=== PATIENT | male | born 1940 | race Caucasian/White ===

== ENCOUNTER 2016-09-19 11:10 | Emergency (ER) | payer MEDICARE, BC ==
--- NOTE | 2016-09-19 12:43 | UC ---
Skin Complaint HPI - HPI Summary HPI Summary: Woke up with raised itchy bumps on inner thighs, back, abd. Had hives once before as a reaction to sawing wood, thinks this feels like hives. No allergies to foods or medicines. Rash seems to be getting better. - History of Current Complaint Chief Complaint: UCSkin Time Seen by Provider: 09/19/16 12:07 Stated Complaint: RASH Hx Obtained From: Patient Onset/Duration: Sudden Onset Timing: Constant Onset Severity: Mild Current Severity: Mild Location: Diffuse Character: Pruritus, Hives Aggravating: Clothing, Touch Alleviating: Nothing Associated Signs & Symptoms: Positive: Rash - Allergy/Home Medications Allergies/Adverse Reactions: Allergies Allergy/AdvReac Type Severity Reaction Status Date / Time Bee Venom Allergy Rash And Verified 11/12/15 00:53 Itching Review of Systems Constitutional: Negative Skin: Rash Eyes: Negative ENT: Negative Respiratory: Negative Cardiovascular: Negative Gastrointestinal: Negative Genitourinary: Negative Motor: Negative Neurovascular: Negative Musculoskeletal: Negative Neurological: Negative Psychological: Negative All Other Systems Reviewed And Are Negative: Yes PMH/Surg Hx/FS Hx/Imm Hx Endocrine History: Diabetes Cardiovascular History: Cardiac Disease, Hypertension Respiratory History: COPD, Asthma - Surgical History Surgical History: Yes Surgery Procedure, Year, and Place: Cardiac Surgery September 2011 - Family History Known Family History: Positive: None Negative: Cardiac Disease, Diabetes - Social History Alcohol Use: Rare Substance Use Type: None Smoking Status (MU): Former Smoker Type: Cigarettes Amount Used/How Often: quit back in the 80's Physical Exam Triage Information Reviewed: Yes Appearance: No Pain Distress, Obese Vital Signs: Initial Vital Signs Temp 98 F 09/19/16 11:14 Pulse 99 09/19/16 11:14 Resp 20 09/19/16 11:14 Pulse Ox 100 09/19/16 11:14 Vital Signs Reviewed: Yes Eye Exam: Normal Eyes: Positive: Conjunctiva Clear ENT Exam: Normal ENT: Positive: Normal ENT inspection, Hearing grossly normal, Pharynx normal, TMs normal Dental Exam: Normal Neck exam: Normal Neck: Positive: Supple, Nontender, No Lymphadenopathy Respiratory Exam: Normal Respiratory: Positive: Chest non-tender, Lungs clear, Normal breath sounds, No respiratory distress, No accessory muscle use Cardiovascular Exam: Normal Cardiovascular: Positive: RRR, No Murmur Musculoskeletal Exam: Normal Neurological Exam: Normal Neurological: Positive: Alert Psychological Exam: Normal Skin Exam: Other - few raised irreg wheals on L flank, upper thighs Course/Dx - Diagnoses Provider Diagnoses: urticaria Discharge - Discharge Plan Condition: Stable Disposition: HOME Prescriptions: hydrOXYzine HCL TAB* [Atarax 25 MG TAB*] 25 mg PO QID PRN #20 tab PRN Reason: Itching Patient Education Materials: Urticaria (ED) Referrals: Fernando Parks MD [Primary Care Provider] - Additional Instructions: See your primary care provider if symptoms do not resolve within 48 hours. Otherwise, take the antihistamine for 3-5 days.
== END 2016-09-19 12:40 | disposition home or self-care (01) ==
LOC: UCEAST 11:10
DX: L50.9 Urticaria, unspecified (principal); E11.9 Type 2 diabetes mellitus without complications; I10 Essential (primary) hypertension; Z87.891 Personal history of nicotine dependence
CPT/HCPCS: 99202; G0463

== ENCOUNTER 2018-06-27 11:54 | Emergency (ER) | payer MEDICARE, OTHER ==
[2018-06-27 12:19] VITALS: BP 153/96
--- NOTE | 2018-06-27 13:38 | UC ---
Respiratory Complaint HPI - HPI Summary HPI Summary: 77 yo male presents s/p fall. He tells me that 4 days ago he slipped on the wet pavement and landed on his left elbow and left side. Did not hit his head. Since that time has been having pain in his left ribs that is more painful with coughing and deep breaths. He is concerned he may have broken a rib. No SOB or chest pain. - History of Current Complaint Chief Complaint: UCTrauma Stated Complaint: RIB PAIN Time Seen by Provider: 06/27/18 12:31 Onset/Duration: Sudden Onset Severity Initially: Moderate Severity Currently: Moderate Pain Intensity: 8 Pain Scale Used: 0-10 Numeric - Allergies/Home Medications Allergies/Adverse Reactions: Allergies Allergy/AdvReac Type Severity Reaction Status Date / Time bee venom protein (honey bee) Allergy Intermediate rash Verified 06/27/18 12:19 itching Home Medications: Home Medications Cholecalciferol TAB* [Vitamin D TAB*] 1,000 unit PO DAILY 06/27/18 [History Confirmed 06/27/18] Metformin HCl 500 mg PO DAILY WITH MEAL 06/27/18 [History Confirmed 06/27/18] PMH/Surg Hx/FS Hx/Imm Hx Endocrine History: Diabetes Cardiovascular History: Cardiac Disease, Hypertension, Congestive Heart Failure Respiratory History: Asthma - Surgical History Surgical History: Yes Surgery Procedure, Year, and Place: Cardiac Surgery September 2011 - Family History Known Family History: Positive: None Negative: Cardiac Disease, Diabetes - Social History Alcohol Use: Weekly Substance Use Type: None Smoking Status (MU): Former Smoker Type: Cigarettes Amount Used/How Often: quit back in the 80's Review of Systems All Other Systems Reviewed And Are Negative: Yes Constitutional: Positive: Negative Skin: Positive: Negative Respiratory: Positive: Negative Cardiovascular: Positive: Negative Gastrointestinal: Positive: Negative Musculoskeletal: Positive: Other: - Left rib pain Neurological: Positive: Negative Psychological: Positive: Negative Physical Exam - Summary Physical Exam Summary: GENERAL: NAD. WDWN. No pain distress. SKIN: No rashes, sores, lesions, or open wounds. CHEST: CTAB. No r/r/w. No accessory muscle use. Breathing comfortably and in no distress. CV: Pulses intact. Cap refill <2seconds Abdomen: Soft and nontender. No ecchymosis MSK: Left ribs: ~8th-9th rib TTP at aterolateral aspect. No ecchymosis or step off deformity. NEURO: Alert. PSYCH: Age appropriate behavior. Triage Information Reviewed: Yes Vital Signs: Initial Vital Signs Temp 98.2 F 06/27/18 12:14 Pulse 74 06/27/18 12:14 Resp 20 06/27/18 12:14 BP 153/96 06/27/18 12:14 Pulse Ox 95 06/27/18 12:14 Vital Signs Reviewed: Yes Respiratory Course/Dx - Course Course Of Treatment: Rib and CXR: IMPRESSION: SMALL LEFT PLEURAL EFFUSION. NO DISPLACED RIB FRACTURE OR PNEUMOTHORAX. Suspect pleural effusion from his CHF and not related to his recent fall. He is breathing well and in no distress. Dx with rib contusion and strongly encouraged to f/u with his PCP for CXR findings. - Differential Dx/Diagnosis Provider Diagnosis: Rib contusion Discharge - Sign-Out/Discharge Documenting (check all that apply): Patient Departure All imaging exams completed and their final reports reviewed: Yes - Discharge Plan Condition: Stable Disposition: HOME Prescriptions: Lidocaine PATCH 5%* [Lidoderm 5% Patch*] 1 patch TRANSDERM DAILY PRN #14 patch PRN Reason: Pain Patient Education Materials: Pleural Effusion (ED) Referrals: Fernando Parks MD [Primary Care Provider] - 2 Days Additional Instructions: If you develop a fever, shortness of breath, chest pain, new or worsening symptoms - please call your PCP or go to the ED. Your blood pressure was high at todays visit. Please see your primary provider within 4 weeks for recheck and re-evaluation. Please follow up with your primary doctor as soon as possible for your rib pain - Billing Disposition and Condition Condition: STABLE Disposition: Home
== END 2018-06-27 13:56 | disposition home or self-care (01) ==
LOC: UCEAST 11:54
DX: S20.20XA Contusion of thorax, unspecified, initial encounter (principal); W01.0XXA Fall on same level from slipping, tripping and stumbling without subsequent striking against object, initial encounter; Y92.9 Unspecified place or not applicable; J90 Pleural effusion, not elsewhere classified; E11.9 Type 2 diabetes mellitus without complications; Z79.84 Long term (current) use of oral hypoglycemic drugs; I11.0 Hypertensive heart disease with heart failure; I50.9 Heart failure, unspecified; J45.909 Unspecified asthma, uncomplicated; Z91.030 Bee allergy status; Z87.891 Personal history of nicotine dependence
CPT/HCPCS: 99212; G0463

== ENCOUNTER 2019-01-23 17:28 | Inpatient (IN) | payer MEDICARE, OTHER ==
--- NOTE | 2019-01-23 19:25 | ED ---
Shortness of Breath - HPI Summary HPI Summary: Patient is a 78 y/o M presenting to the ED for a chief complaint of shortness of breath that began on 01/22/19. On arrival, patient's pulse ox was 83%. Patient also admits nonproductive cough, nasal discharge, and chest discomfort and tightness. The chest discomfort and shortness of breath worsens with exertion and walking. Patient denies fever, bilateral LE edema, or recent illness. Patient uses 2L of oxygen and a CPAP machine at night. Patient sees Dr. Parks. Patient denies a PMHx of [place]. Allergies noted Medications reviewed. - History of Current Complaint Chief Complaint: EDShortnessOfBreath Time Seen by Provider: 01/23/19 19:22 Hx Obtained From: Patient Onset/Duration: Sudden Onset, Still Present Current Severity: Moderate Aggravating Factors: Movement - Walking Alleviating Factors: Nothing Associated Signs & Symptoms: Cough (Nonproductive), Nasal Congestion - Allergy/Home Medications Allergies/Adverse Reactions: Allergies Allergy/AdvReac Type Severity Reaction Status Date / Time bee venom protein (honey bee) Allergy Intermediate rash Verified 01/23/19 17:38 itching Home Medications: Home Medications Acetaminophen [Acetaminophen Extra Strength] 1,000 mg PO Q6HR PRN 01/23/19 [ History Confirmed 01/23/19] Aspirin EC TAB* [Ecotrin EC Low Dose 81 MG*] 81 mg PO DAILY 01/23/19 [History Confirmed 01/23/19] Atorvastatin* [Lipitor*] 20 mg PO DAILY 01/23/19 [History Confirmed 01/23/19] Budesonide Flexhaler 180 (NF) [Pulmicort Flexhaler 180 mcg/act (NF)] 1 puff IN BID 01/23/19 [History Confirmed 01/23/19] Carvedilol TAB* [Coreg TAB*] 25 mg PO BID 01/23/19 [History Confirmed 01/23/19] Cbd Oil 1 drop PO BID 01/23/19 [History Confirmed 01/23/19] Digoxin TAB* [Lanoxin TAB*] 0.125 mg PO EVERY OTHER DAY 01/23/19 [History Confirmed 01/23/19] Lisinopril TAB* [Prinivil TAB*] 10 mg PO DAILY 01/23/19 [History Confirmed 01/23] Sildenafil (NF) [Viagra (NF)] 50 - 100 mg PO DAILY PRN 01/23/19 [History Confirmed 01/23/19] Torsemide TAB* [Demadex*] 10 mg PO EVERY OTHER DAY 01/23/19 [History Confirmed 01/23/19] Warfarin TAB(*) [Coumadin TAB(*)] 2.5 mg PO SA 01/23/19 [History Confirmed 01/23] Warfarin TAB(*) [Coumadin TAB(*)] 5 mg PO SUMOTUWETHFR 01/23/19 [History Confirmed 01/23/19] metFORMIN* [Glucophage 500 MG TAB *] 500 mg PO BID 01/23/19 [History Confirmed 01/23/19] PMH/Surg Hx/FS Hx/Imm Hx Previously Healthy: Yes Endocrine/Hematology History: Reports: Hx Diabetes - borderline Denies: Hx Thyroid Disease Cardiovascular History: Reports: Hx Hypertension, 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 Denies: Hx Congestive Heart Failure, Hx Hypercholesterolemia, Hx Myocardial Infarction, Hx Pacemaker/ICD Respiratory History: Reports: Hx Asthma, Hx Chronic Obstructive Pulmonary Disease (COPD), Hx Sleep Apnea, Other Respiratory Problems/Disorders - Cor Pulmonale, severe JANETT, current BiPAP user GI History: Denies: Hx Ulcer Sensory History: Denies: Hx Legally Blind, Hx Deafness Opthamlomology History: Denies: Hx Legally Blind EENT History: Denies: Hx Deafness - Surgical History Surgical History: Yes Surgery Procedure, Year, and Place: Cardiac Surgery September 2011 - Immunization History Date of Tetanus Vaccine: UTD Date of Influenza Vaccine: 12/13/15 Infectious Disease History: No Infectious Disease History: Denies: Hx Clostridium Difficile, Hx Hepatitis, Hx Human Immunodeficiency Virus (HIV), Hx of Known/Suspected MRSA, Hx Shingles, Hx Tuberculosis, Hx Known/ Suspected VRE, Hx Known/Suspected VRSA, History Other Infectious Disease, Traveled Outside the [place] in Last 30 Days - Family History Known Family History: Negative: Cardiac Disease, Diabetes - Social History Occupation: Retired Lives: With Family Alcohol Use: Weekly Hx Substance Use: No Substance Use Type: Reports: None Hx Tobacco Use: Yes Smoking Status (MU): Former Smoker Type: Cigarettes Amount Used/How Often: quit back in the 80's Review of Systems - ROS Summary Review of Systems Summary: Lidocaine PATCH 5%* [Lidoderm 5% Patch*] 1 patch TRANSDERM DAILY PRN #14 patch 06/27/18 [Rx Confirmed 01/23/19] Acetaminophen [Acetaminophen Extra Strength] 1,000 mg PO Q6HR PRN 01/23/19 [ History Confirmed 01/23/19] Aspirin EC TAB* [Ecotrin EC Low Dose 81 MG*] 81 mg PO DAILY 01/23/19 [History Confirmed 01/23/19] Atorvastatin* [Lipitor*] 20 mg PO DAILY 01/23/19 [History Confirmed 01/23/19] Budesonide Flexhaler 180 (NF) [Pulmicort Flexhaler 180 mcg/act (NF)] 1 puff IN BID 01/23/19 [History Confirmed 01/23/19] Carvedilol TAB* [Coreg TAB*] 25 mg PO BID 01/23/19 [History Confirmed 01/23/19] Cbd Oil 1 drop PO BID 01/23/19 [History Confirmed 01/23/19] Digoxin TAB* [Lanoxin TAB*] 0.125 mg PO EVERY OTHER DAY 01/23/19 [History Confirmed 01/23/19] Lisinopril TAB* [Prinivil TAB*] 10 mg PO DAILY 01/23/19 [History Confirmed 01/23] Sildenafil (NF) [Viagra (NF)] 50 - 100 mg PO DAILY PRN 01/23/19 [History Confirmed 01/23/19] Torsemide TAB* [Demadex*] 10 mg PO EVERY OTHER DAY 01/23/19 [History Confirmed 01/23/19] Warfarin TAB(*) [Coumadin TAB(*)] 2.5 mg PO SA 01/23/19 [History Confirmed 01/23] Warfarin TAB(*) [Coumadin TAB(*)] 5 mg PO SUMOTUWETHFR 01/23/19 [History Confirmed 01/23/19] metFORMIN* [Glucophage 500 MG TAB *] 500 mg PO BID 01/23/19 [History Confirmed 01/23/19] Negative: Fever Positive: Nasal Discharge Positive: Other - Positive chest pressure and tightness Positive: Shortness Of Breath, Cough - Nonproductive Negative: Edema - Bilateral LE All Other Systems Reviewed And Are Negative: Yes Physical Exam - Summary Physical Exam Summary: General: Well-developed, Non-ill appearing obese MALE. No acute distress. HEENT: Normocephalic, Atraumatic. Eyes: Conjuctiva normal, PERRL. Ears: TMs within normal limits. Nares: (-) discharge, (-) erythema. Oropharynx: Clear, mucous membranes moist, (-) exudates. Neck: Soft, FROM, (-) lymphadenopathy, (-) thyromegaly, (-) JVD. Cardiovascular: Normal sinus rhythm, (-) murmur. Lungs: Clear to auscultation bilaterally (-) wheezes, (-) rales, (-) rhonchi. Abdomen: Soft, non-tender, non-distended, (-) organomegaly, normal bowel sounds. Back: (-) CVA tenderness Extremities: No edema. Skin: Warm, dry, (-) rash. Neuro: Alert and oriented x3, no focal deficits. Psychiatric: Mood normal, affect normal. Triage Information Reviewed: Yes Vital Signs On Initial Exam: Initial Vitals Temp Pulse Resp BP Pulse Ox 98.5 F 79 15 186/90 92 01/23/19 17:37 01/23/19 17:37 01/23/19 17:37 01/23/19 17:37 01/23/19 17:37 Vital Signs Reviewed: Yes Procedures - Sedation Patient Received Moderate/Deep Sedation with Procedure: No Diagnostics - Vital Signs Vital Signs Temp Pulse Resp BP Pulse Ox 01/23/19 17:37 98.5 F 79 15 186/90 92 - Laboratory Result Diagrams: 01/23/19 21:13 01/23/19 22:09 Lab Statement: Any lab studies that have been ordered have been reviewed, and results considered in the medical decision making process. - Radiology Chest X-ray Radiology Interpretation Completed By: ED Physician Summary of Radiographic Findings: Chest X-ray IMPRESSION: increased fluid, no acute pleural effusion on the right, no obvious infiltrate. Reviewed and interpreted by Dr. Herrera; pending official radiology report. - EKG 19:35 Cardiac Rate: NL - 79 BPM EKG Rhythm: Sinus Rhythm ST Segment: Normal Ectopy: None Summary of EKG Findings: EKG at 19:35 reveals normal sinus rhythm with rate of 79 BPM, no acute changes, no ischemic changes, RBBB, no STEMI. This EKG was reviewed and interpreted by Dr. Herrera. Re-Evaluation - Re-Evaluation First Re-Evaluation Time: 22:17 Change: Unchanged Comment: At 22:17, will give Lasix 80 mg IV for CHF. Course/Dx - Course Course Of Treatment: 78-year-old male presents with difficulty breathing over the last 2 days. He states any time he tries to do anything he gets short of breath. Significantly different than his usual state of health. He denies any chest pain. Patient with crackles, edema, elevated BNP. In the ED course, patient was given Lasix 80 mg IV. Good urine output. Referred to hospitalist for admission for hypoxemia and CHF. - Diagnoses Provider Diagnoses: CHF (congestive heart failure), Hypoxia - Physician Notifications Discussed Care of Patient With: Nathaly Gonzalez - At 01:30, Dr. Nathaly Gonzalez agrees to admit the [place] [facility] a diagnosis of [place]F and hypoxia. Time Discussed With Above Provider: 01:30 Instructed by Provider To: Admit As Inpatient Discharge ED - Sign-Out/Discharge Documenting (check all that apply): Patient Departure - Admit - Discharge Plan Condition: Stable Disposition: ADMITTED TO [facility] - Billing Disposition and Condition Condition: STABLE Disposition: Admitted to [facility] - Attestation Statements Document Initiated by Scribe: Yes Documenting Scribe: Filomena Chowdhury Provider For Whom Arjun is Documenting (Include Credential): Irina Herrera MD Scribe Attestation: Filomena Arrieta, scribed for Irina Herrera MD on 01/24/19 at 0618. Scribe Documentation Reviewed: Yes Provider Attestation: The documentation as recorded by the Filomena santana accurately reflects the service I personally performed and the decisions made by me, Irina Herrera MD Status of Scribe Document: Viewed
[2019-01-23 21:35] LABS: ABS Basophils 0.1 10^3/ul (0-0.2); ABS Eosinophils 0.1 10^3/ul (0-0.6); ABS Lymphocytes 1.6 10^3/ul (1.0-4.8); ABS Monocytes 0.9 10^3/ul (0-0.8); ABS Neutrophils 9.7 10^3/ul (1.5-7.7); Eosinophil % 0.9 %; Hematocrit 44 % (42-52); Hemoglobin 14.7 g/dL (14.0-18.0); Lymphocyte % 13.2 %; Mean Corpuscular HGB Conc 33 g/dL (31-36); Mean Corpuscular Hemoglobin 31 pg (27-31); Mean Corpuscular Volume 92 fL (80-94); Mean Platelet Volume 8.4 fL (7.4-10.4); Platelet Count 245 10^3/uL (150-450); Red Blood Count 4.81 10^6 /uL (4.18-5.48); Red Cell Distribution Width 14 % (10-15); White Blood Count 12.4 10^3/uL (3.5-10.8)
[2019-01-23 21:39] LABS: INR 3.71 (0.82-1.09)
[2019-01-23 21:46] LABS: ALT 17 U/L (7-52); Albumin 3.9 g/dL (3.2-5.2); Albumin/Globulin Ratio 1.2 (1-3); Alkaline Phosphatase 76 U/L (34-104); BUN/Creatinine Ratio 13.9 (8-20); Blood Urea Nitrogen 10 mg/dL (6-24); CO2 Carbon Dioxide 27 mmol/L (22-32); Calcium 8.9 mg/dL (8.6-10.3); Chloride 105 mmol/L (101-111); EGFR African American 128.4 (>60); EGFR Non-African American 106.1 (>60); Globulin 3.3 g/dL (2-4); Glucose 104 mg/dL (70-100); Sodium 139 mmol/L (135-145); Total Protein 7.2 g/dL (6.4-8.9)
[2019-01-23 21:47] LABS: Troponin I 0.03 ng/mL (<0.04)
[2019-01-23 21:48] LABS: Anion Gap 7 mmol/L (2-11)
[2019-01-23] MEDS ORDERED: Torsemide TAB* 20 MG PO ONE (21:56)
[2019-01-23] MEDS ORDERED: Lisinopril TAB* 10 MG PO ONE (21:57)
[2019-01-23] MEDS ORDERED: Furosemide IV* 10 MG/ML 10 ML VIAL (100 MG) IV ONE (22:17)
[2019-01-23 22:28] LABS: Potassium Redraw 3.8 mmol/L (3.5-5.0)
[2019-01-24] MEDS ORDERED: Carvedilol TAB* 6.25 MG PO ONE (02:01)
--- NOTE | 2019-01-24 06:47 | HP ---
History of Present Illness - History of Present Illness Reason for Visit: shortness of breath History of Present Illness: 78 year old male with pmhx of CHF, chronic hypoxemic resp failure, JANETT, DM2, Afib on warfarin, HLD who presented with 2-3 days hx of shortness of breath. He said he has never had anything like it before. He said he is being managed by his PCP for heart failure and takes his "water-pill" regularly but doesnt necessarily follow a low sodium diet or any heart healthy diet. Vitals stable. He is on 2-4L NC. He is supposed to be wearing 2L NC at baseline. He received 1 dose of lasix in the ER and felt better. - Past Medical History Cardiac: AFIB, CAD, HTN - Past Family History Family History: Hyperlipidemia, Hypertension - Past Social History Smoke: No Drugs: None Lives: Alone Review of Systems - Measurements Intake and Output: Intake and Output Last 24 Hours 01/21/19 01/22/19 01/23/19 01/24/19 06:59 06:59 06:59 06:59 Intake Total 80 Output Total 3775 Balance -3695 Weight 267 lb Intake: IV Fluids 20 Oral 60 Output: Urine 3775 - Review of Systems Dermatology: Positive: Normal HEENT: Positive: Normal Eyes: Positive: Normal Thyroid: Positive: Normal Pulmonary: Positive: Respiratory Distress, Shortness of Breath Cardiology: Positive: Normal, Swelling of Ankles Gastroenterology: Positive: Normal Endocrinology: Positive: Normal Neurology: Positive: Normal Psychiatry: Positive: Normal Objective Active Medications: Aspirin (Aspirin 81 Mg Chew Tab*) 81 mg PO DAILY [facility] Atorvastatin Calcium (Lipitor*) 20 mg PO DAILY@1700 [facility] Digoxin (Lanoxin Tab*) 0.25 mg PO 1700 [facility] Lisinopril (Prinivil Tab*) 10 mg PO DAILY [facility] Vital Signs - 8 hr 01/23/19 01/23/19 01/23/19 22:58 23:00 23:11 Temperature Pulse Rate 70 69 71 Respiratory 17 21 26 Rate Blood Pressure 185/90 187/98 (mmHg) O2 Sat by Pulse 97 97 97 Oximetry 01/23/19 01/23/19 01/23/19 23:27 23:54 23:58 Temperature Pulse Rate 83 77 78 Respiratory 23 22 23 Rate Blood Pressure 169/102 194/100 172/102 (mmHg) O2 Sat by Pulse 94 94 95 Oximetry 01/24/19 01/24/19 01/24/19 00:00 00:02 00:28 Temperature Pulse Rate 75 80 71 Respiratory 16 22 22 Rate Blood Pressure 181/95 (mmHg) O2 Sat by Pulse 97 96 95 Oximetry 01/24/19 01/24/19 01/24/19 00:29 00:58 01:00 Temperature Pulse Rate 73 72 72 Respiratory 21 18 21 Rate Blood Pressure 183/94 167/83 (mmHg) O2 Sat by Pulse 95 93 94 Oximetry 01/24/19 01/24/19 01/24/19 01:28 02:00 02:28 Temperature Pulse Rate 68 83 78 Respiratory 24 30 23 Rate Blood Pressure 171/87 163/90 (mmHg) O2 Sat by Pulse 93 93 92 Oximetry 01/24/19 01/24/19 01/24/19 02:58 03:00 03:35 Temperature 98.3 F Pulse Rate 76 80 84 Respiratory 22 25 24 Rate Blood Pressure 157/77 (mmHg) O2 Sat by Pulse 94 93 92 Oximetry 01/24/19 03:42 Temperature 97.9 F Pulse Rate 82 Respiratory 22 Rate Blood Pressure 154/81 (mmHg) O2 Sat by Pulse 94 Oximetry Oxygen Devices in Use Now: Nasal Cannula Appearance: morbidly obese. Mildly dyspneic, speaking in full sentences. Eyes: No Scleral Icterus, PERRLA Neck: NL Appearance and Movements; NL JVP Respiratory: Symmetrical Chest Expansion and Respiratory Effort Cardiovascular: NL Sounds; No Murmurs; No JVD Lymphatic: - Extremities: - - 2+ edema B/L Neurological: Alert and Oriented x 3 Result Diagrams: 01/23/19 21:13 01/23/19 22:09 Assess/Plan/Problems-Billing Assessment: - Patient Problems (1) CHF (congestive heart failure) Current Visit: Yes Status: Acute Code(s): I50.9 - HEART FAILURE, UNSPECIFIED SNOMED Code(s): 18956789 Comment: reports hx of CHF. Presenting with shortness of breath. XR looks a bit congested. Responded symptomatically to lasix in the ER. Echo cont home meds ( carvedilol, aspirin, statin, digoxin) dig level (2) Diabetes mellitus type 2 in obese Current Visit: Yes Status: Acute Code(s): E11.69 - TYPE 2 DIABETES MELLITUS WITH OTHER SPECIFIED COMPLICATION; E66.9 - OBESITY, UNSPECIFIED SNOMED Code(s) : 98394498 Comment: on metformin at home A1C FS ACHS lantus 10 nightly (3) Atrial fibrillation Current Visit: Yes Status: Acute Code(s): I48.91 - UNSPECIFIED ATRIAL FIBRILLATION SNOMED Code(s): 52437247 Comment: on Digoxin dig level pending in sinus. INR supratherapeutic, will hold warfarin (4) Hyperlipidemia Current Visit: Yes Status: Acute Code(s): E78.5 - HYPERLIPIDEMIA, UNSPECIFIED SNOMED Code(s): 38502680 Comment: statin (5) On home O2 Current Visit: Yes Status: Acute Code(s): Z99.81 - DEPENDENCE ON SUPPLEMENTAL OXYGEN SNOMED Code(s): 711179321651 Comment: Not sure why he has chronic hypoxemic respiratory failure (6) DVT prophylaxis Current Visit: Yes Status: Acute Code(s): Z29.9 - ENCOUNTER FOR PROPHYLACTIC MEASURES, UNSPECIFIED SNOMED Code(s): 675544095 Comment: warfarin INR 2-3 (7) Full code status Current Visit: Yes Status: Acute Code(s): Z78.9 - OTHER SPECIFIED HEALTH STATUS SNOMED Code(s): 958703861
[2019-01-24 06:50] LABS: ABS Basophils 0.1 10^3/ul (0-0.2); ABS Eosinophils 0.1 10^3/ul (0-0.6); ABS Lymphocytes 1.4 10^3/ul (1.0-4.8); ABS Monocytes 1.1 10^3/ul (0-0.8); ABS Neutrophils 7.9 10^3/ul (1.5-7.7); Hematocrit 45 % (42-52); Lymphocyte % 12.8 %; Mean Corpuscular HGB Conc 34 g/dL (31-36); Mean Corpuscular Hemoglobin 31 pg (27-31); Mean Corpuscular Volume 92 fL (80-94); Mean Platelet Volume 8.1 fL (7.4-10.4); Nucleated Red Blood Cells % 0.1; Platelet Count 246 10^3/uL (150-450); Red Blood Count 4.88 10^6 /uL (4.18-5.48); Red Cell Distribution Width 14 % (10-15); White Blood Count 10.6 10^3/uL (3.5-10.8)
[2019-01-24 06:57] LABS: INR 4.02 (0.82-1.09)
[2019-01-24] MEDS ORDERED: Aspirin 81 mg CHEW TAB* 81 MG TAB.CHEW PO SCH (09:00)
[2019-01-24] MEDS ORDERED: Perflutren Lipid Microsphere* 3 ML VIAL ONE (09:19)
[2019-01-24] MEDS ORDERED: Lidocaine PATCH 5%* 1 PATCH TRANSDERM PRN (09:48)
[2019-01-24] MEDS: Lisinopril TAB* 10 MG PO SCH (10:37)
--- NOTE | 2019-01-24 10:37 | ECHO ---
*[facility]* [place] [address] Fax #: [phone] Transthoracic Echocardiogram Patient: Dustin Clemons : 1940 Study Date: 01/24/2019 Age: 78 Gender: M HR: 72 bpm Height: 66 in /167.6 cm BSA: 2.26 m^2 Weight: 266.4 lb /121.1 kg BMI: 43.1 kg/m^2 *Compound Mixer: * Filomena Noel [facility] *Referring Physician: * Nathaly Gonzalez *Reading Physician: * Shu Gonzalez MD Indications: Congestive Heart Failure. History: Atrial fibrillation. Congestive heart failure. Risk factors: Diabetes mellitus. Dyslipidemia. Conclusions Summary: - Left ventricle: The cavity size is mildly dilated. Wall thickness is mildly increased. Systolic function is normal. The estimated ejection fraction is 50-55%. Doppler parameters abnormal, indicative of diastolic dysfunction. - Right ventricle: Systolic function is normal. - Left atrium: The atrium is severely dilated. - Right atrium: The atrium is mildly to moderately dilated. - Mitral valve: The Mitral valve annulus appears calcified. The leaflets are mildly thickened. There is mild to moderate regurgitation, closer to mild. - Aortic valve: The findings are consistent with mild stenosis. The mean systolic gradient is 10.0 mm Hg. The LVOT to aortic valve VTI ratio is 0.4. The valve area by the velocity-time integral method is 1.80 cm^2. - Compared with prior echocardiogram of 06/07/17, ejection fraction is stable, left ventricular hypertrophy noted on prior, stable. Prior study reports mild mitral stenosis, this is not seenon this study. Study data: Transthoracic echocardiogram. Procedure: Transthoracic echocardiography was performed. Image quality was adequate. Intravenous Definity , 3 mlswas administered. Complete 2D, spectral Doppler, and color flow Doppler. Location: Bedside. Patient status: Inpatient. Patient room number: 446 01. Rhythm: Normal sinus rhythm. Findings Left ventricle: The cavity size is mildly dilated. Wall thickness is mildly increased. Systolic function is normal. The estimated ejection fraction is 50-55%. Regional wall motion abnormalities: Possible hypokinesis of the basalinferior myocardium. Doppler parameters abnormal, indicative of diastolic dysfunction. Right ventricle: The cavity size is normal. Systolic function is normal. Left atrium: The atrium is severely dilated. Right atrium: The atrium is mildly to moderately dilated. Mitral valve: The Mitral valve annulus appears calcified. The leaflets are mildly thickened. Leaflet separation is normal. There is no evidence of stenosis. There is mild to moderate regurgitation, closer to mild. Aortic valve: The annulus is mildly calcified. The valve is trileaflet. The leaflets are mildly thickened. Cusp separation is mildly reduced. The findings are consistent with mild stenosis. There is no significant regurgitation. Tricuspid valve: The leaflets are normal thickness. There is no evidence of stenosis. There is no significant regurgitation. Pulmonic valve: The leaflets are normal thickness. There is no significant regurgitation. Aorta: The aortic root appears normal. Pericardium: There is no significant pericardial effusion. Pulmonary arteries: Not well visualized. Systolic pressure can not be accurately estimated. Systemic veins: Inferior vena cava: The vessel is normal in size. There is (>= 50%) respiratory change in the IVC dimension. Measurements Left ventricle Value Ref Aortic valve Value Ref CHRISTINE, LAX (H) 6.1 cm 4.2 - 5.8 Mindy diam, ED 2.5 cm ---- ESD, LAX 3.9 cm 2.5 - 4.0 Peak v, S 2.1 m/sec ---- FS, LAX 36 % 25 - 43 VTI, S 43.0 cm ---- PW, ED, LAX (H) 1.3 cm 0.6 - 1.0 Accel time 75 ms ---- EF 65 % 52 - 72 Mean grad, S 10.0 mm Hg ---- E', lat mindy, TDI (L) 7.8 cm/sec >=10.0 Peak grad, S 18.0 mm Hg -- -- E/e', lat mindy, 14 LVOT/AV, VTI ratio 0.4 ---- TDI MICHOACANO, VTI 1.80 cm^2 ---- E', med mindy, TDI (L) 4.6 cm/sec >=7.0 MICHOACANO, Vmax 1.70 cm^2 -- -- E/e', med mindy, 23 TDI Mitral valve Value Ref E', avg, TDI 6.2 cm/sec Peak E 1.08 m/sec ---- E/e', avg, TDI (H) 17 <=14 Peak A 0.65 m/sec -- -- Decel time 185 ms ---- LVOT Value Ref PHT 96 ms ---- Diam, S 2.40 cm Mean grad, D 2.0 mm Hg ---- Peak patricia, S 0.8 m/sec Peak grad, D 5.0 mm Hg ---- VTI, S 17.0 cm Peak E/A ratio 1.7 ---- Peak grad, S 2 mm Hg MVA, PHT 2.3 cm^2 ---- Mean grad, S 1 mm Hg ERO, PISA 0.06 cm^2 ---- MR vol, PISA 10 ml ---- Ventricular septum Value Ref IVS, ED (H) 1.2 cm 0.6 - 1.0 Pulmonic valve Value Ref Peak v, S 0.98 m/sec ---- Right ventricle Value Ref Peak grad, S 4.0 mm Hg ---- CHRISTINE, LAX 3.6 cm CHRISTINE minor ax, 3.0 cm 1.9 - 3.5 Aortic root Value Ref A4C mid Root diam 3.3 cm <4.3 Left atrium Value Ref Ascending aorta Value Ref AP dim, ES (H) 6.10 cm 3.00 - AAo AP diam, S 2.9 cm ---- 4.00 ML dim, A4C 6.3 cm Decending aorta Value Ref SI dim, A4C 7.1 cm Jae peak patricia 0.36 m/sec ---- Vol/bsa, ES, A/L (H) 59 ml/m^2 16 - 34 Inferior vena cava Value Ref Right atrium Value Ref Diam 2.1 cm ---- SI dim, ES (H) 6.1 cm 3.4 - 5.3 ML dim, ES, A4C (H) 4.6 cm 2.6 - 4.4 Legend: (L) and (H) lula values outside specified reference range. Prepared and electronically signed by Shu Gonzalez MD 01/24/2019 10:36
[2019-01-24 11:06] LABS: Calcium 9.1 mg/dL (8.6-10.3); Potassium 3.5 mmol/L (3.5-5.0)
[2019-01-24 11:12] LABS: BUN/Creatinine Ratio 13.3 (8-20); EGFR Non-African American 74.4 (>60)
--- NOTE | 2019-01-24 16:30 | PN ---
Subjective Date of Service: 01/24/19 Interval History: Patient still feeling SOB, but is able to walk to the bathroom and back without having to stop and catch breath. Patient denies CP, dizziness, N/V, dysuria, palpitations, or other pain. Family History: Unchanged from Admission Social History: Unchanged from Admission Past Medical History: Unchanged from Admission Objective Active Medications: Aspirin (Aspirin Ec Tab*) 81 mg PO DAILY [facility] Atorvastatin Calcium (Lipitor*) 20 mg PO DAILY@1700 [facility] Digoxin (Lanoxin Tab*) 0.125 mg PO EVERY OTHER DAY [facility] Influenza Virus Vaccine (Fluarix Quad [id number] Syr) 0.5 ml IM .ONCE ONE Stop: 01/25/19 09:01 Lidocaine (Lidoderm 5% Patch*) 1 patch TRANSDERM DAILY PRN PRN Reason: PAIN Lisinopril (Prinivil Tab*) 10 mg PO DAILY [facility] Last Admin: 01/24/19 10:37 Dose: 10 mg Metformin HCl (Glucophage*) 500 mg PO BID [facility] Pharmacy Profile Note (Lidocaine Patch Remove*) 1 note PATCH OFF 2100 [facility] Torsemide (Torsemide) 10 mg PO DAILY [facility] Vital Signs - 8 hr 01/24/19 01/24/19 11:15 12:14 Temperature 98.2 F 98.2 F Pulse Rate 66 66 Respiratory 20 20 Rate Blood Pressure 144/62 144/66 (mmHg) O2 Sat by Pulse 96 92 Oximetry Oxygen Devices in Use Now: Nasal Cannula Appearance: Patient is a 78yo male sitting in the bed with slightly increased work of breathing, in no other acute distress. Eyes: No Scleral Icterus, PERRLA Ears/Nose/Mouth/Throat: NL Teeth, Lips, Gums, Clear Oropharnyx, Mucous Membranes Moist Neck: NL Appearance and Movements; NL JVP, Trachea Midline Respiratory: Symmetrical Chest Expansion and Respiratory Effort, Clear to Auscultation Cardiovascular: NL Sounds; No Murmurs; No JVD, RRR, - - Trace B/L LE edema. Abdominal: NL Sounds; No Tenderness; No Distention, No Hepatosplenomegaly Lymphatic: No Cervical Adenopathy Extremities: No Clubbing, Cyanosis Skin: No Nodules or Sclerosis Neurological: Alert and Oriented x 3, NL Sensation, NL Muscle Strength and Tone , - - CN II-XII intact. Result Diagrams: 01/24/19 06:37 01/24/19 06:37 Assess/Plan/Problems-Billing Assessment: Patient is a 78yo male with a PMH for HFpEF, Afib, HTN, HLD, here with increased SOB, found to have acute on chronic HFpEF. - Patient Problems (1) CHF (congestive heart failure) Current Visit: Yes Status: Acute Code(s): I50.9 - HEART FAILURE, UNSPECIFIED SNOMED Code(s): 58758241 Comment: - Acute on chronic HFpEF, EF 50-55% on echo today. - Improving on diuretics. - Cont home meds ( carvedilol, aspirin, statin, digoxin) - Dig level WNL (2) Atrial fibrillation Current Visit: Yes Status: Acute Code(s): I48.91 - UNSPECIFIED ATRIAL FIBRILLATION SNOMED Code(s): 27848631 Comment: - On Digoxin - Sinus Rhythm, non-tachycardic - INR supratherapeutic, will hold warfarin, no need to reverse. (3) Diabetes mellitus type 2 in obese Current Visit: Yes Status: Acute Code(s): E11.69 - TYPE 2 DIABETES MELLITUS WITH OTHER SPECIFIED COMPLICATION; E66.9 - OBESITY, UNSPECIFIED SNOMED Code(s) : 79765413 Comment: - Continue Metformin (4) Hyperlipidemia Current Visit: Yes Status: Acute Code(s): E78.5 - HYPERLIPIDEMIA, UNSPECIFIED SNOMED Code(s): 27670417 Comment: - Continue statin (5) On home O2 Current Visit: Yes Status: Acute Code(s): Z99.81 - DEPENDENCE ON SUPPLEMENTAL OXYGEN SNOMED Code(s): 852141614457 Comment: - On PRN O2 at 2L at home and at night. (6) Sleep apnea Current Visit: No Status: Active Code(s): G47.30 - SLEEP APNEA, UNSPECIFIED SNOMED Code(s): 68504330 Comment: - Continue CPAP (7) Full code status Current Visit: Yes Status: Acute Code(s): Z78.9 - OTHER SPECIFIED HEALTH STATUS SNOMED Code(s): 941403144 (8) DVT prophylaxis Current Visit: Yes Status: Acute Code(s): Z29.9 - ENCOUNTER FOR PROPHYLACTIC MEASURES, UNSPECIFIED SNOMED Code(s): 478440248 Comment: - Supratherapeutic on Coumadin Status and Disposition: Observation for CHF, hopeful D/C tomorrow.
[2019-01-24] MEDS ORDERED: Atorvastatin* 20 MG TAB PO SCH (17:00)
[2019-01-24] MEDS ORDERED: Digoxin TAB* 0.25 MG PO SCH (17:00)
[2019-01-24] MEDS ORDERED: Lidocaine Patch REMOVE* 1 NOTE MISC PATCH OFF SCH (21:00)
[2019-01-24] MEDS: metFORMIN* 500 MG TAB PO SCH (21:21)
[2019-01-25 05:25] LABS: ABS Basophils 0.1 10^3/ul (0-0.2); ABS Eosinophils 0.2 10^3/ul (0-0.6); ABS Lymphocytes 1.9 10^3/ul (1.0-4.8); Hematocrit 45 % (42-52); Hemoglobin 15.5 g/dL (14.0-18.0); Lymphocyte % 20.5 %; Mean Corpuscular HGB Conc 34 g/dL (31-36); Mean Corpuscular Hemoglobin 32 pg (27-31); Mean Corpuscular Volume 92 fL (80-94); Mean Platelet Volume 8.2 fL (7.4-10.4); Nucleated Red Blood Cells % 0.1; Platelet Count 235 10^3/uL (150-450); Red Blood Count 4.91 10^6 /uL (4.18-5.48); Red Cell Distribution Width 14 % (10-15); White Blood Count 9.2 10^3/uL (3.5-10.8)
[2019-01-25 05:30] LABS: INR 2.4 (0.82-1.09)
[2019-01-25 05:37] LABS: BUN/Creatinine Ratio 15.9 (8-20); Calcium 8.9 mg/dL (8.6-10.3); EGFR African American 101.9 (>60); EGFR Non-African American 84.2 (>60); Potassium 3.4 mmol/L (3.5-5.0)
[2019-01-25] MEDS ORDERED: Aspirin EC TAB* 81 MG TAB.EC PO SCH (09:00)
[2019-01-25] MEDS ORDERED: Influenza VAC *QUAD* 2019-20* 0.5 ML SYRINGE IM ONE (09:00)
[2019-01-25] MEDS ORDERED: Torsemide TAB 10 MG PO SCH (09:00)
[2019-01-25] MEDS: Lisinopril TAB* 10 MG PO SCH (09:12)
[2019-01-25] MEDS: metFORMIN* 500 MG TAB PO SCH (09:13)
[2019-01-25 11:54] VITALS: BP 164/86
--- NOTE | 2019-01-25 22:25 | DS ---
CC: Dr. Fernando Parks * DISCHARGE SUMMARY: DATE OF ADMISSION: 01/24/19 DATE OF DISCHARGE: 01/25/19 PRIMARY CARE PROVIDER: Dr. Fernando Parks OUTPATIENT COMMERCIAL HORTICULTURE INSTRUCTOR: Dr. Fernando Parks MY ATTENDING WHILE IN THE HOSPITAL: Dr. Kristen Franco.* (DICTATED BY GIRISH NATARAJAN) PRIMARY DISCHARGE DIAGNOSES: Acute on chronic heart failure, preserved ejection fraction. SECONDARY DISCHARGE DIAGNOSES: 1. Hypertension. 2. Hyperlipidemia. 3. Diabetes mellitus type 2. 4. Atrial fibrillation, currently in sinus rhythm. 5. Chronic obstructive pulmonary disease. STUDIES DONE WHILE IN THE HOSPITAL: EKG from 01/23/19 shows normal sinus rhythm. No ST segment elevation or depression. PVCs; right bundle-branch block , no other hypertrophy or enlargement, poor quality study. Chest x-ray read as cardiomegaly with interstitial edema consistent with CHF. Transthoracic echocardiogram read as estimated ejection fraction 50% to 55%, mildly increased left ventricular wall thickness, mildly dilated left ventricle diastolic dysfunction, left atrium severely dilated, right atrium mild to moderately dilated, mitral valve annulus appears calcified, mildly thickened, mild to moderate regurgitation, mild aortic stenosis, mild mitral stenosis new. MEDICATIONS AT DISCHARGE: 1. Lidocaine patch 1 patch topical daily as needed. 2. Tylenol 1000 mg p.o. q.4 hours as needed. 3. Metformin 500 mg p.o. b.i.d. 4. Aspirin 81 mg p.o. daily. 5. Warfarin 5 mg p.o. Tuesday, Tuesday, Tuesday, Tuesday, , Tuesday. 6. Warfarin 2.5 mg Tuesday. 7. Lisinopril 10 mg p.o. daily. 8. Digoxin 0.125 mg p.o. every other day. 9. Atorvastatin 20 mg p.o. daily. 10. Torsemide 10 mg p.o. daily x7 days then 10 mg every other day. 11. Viagra 500 to 1000 mg p.o. daily as needed. 12. Pulmicort 1 puff inhalation b.i.d. 13. Carvedilol 25 mg p.o. b.i.d. 14. CBD oil 1 drop p.o. b.i.d. New medications at discharge: Torsemide. Medications discontinued at discharge: None. HOSPITAL COURSE: This is a brief summary of the patient's presentation; for more details please see the history and physical from Dr. Nathaly Gonzalez on . In brief, the patient is a 78-year-old male with the past medical history significant for the above, who does not engage in a low sodium diet but he does take his torsemide regularly. The patient uses 2 L of oxygen at home intermittently and then CPAP with oxygen at night all the time. The patient has never been told that he needs to have his oxygen at all times. The patient does have a known history of CHF and has never been hospitalized for it before. The patient had increased oxygen demand in the emergency department. He was given Lasix. He felt improved shortness of breath. He was admitted to the hospital. His weight declined. He had over 4 L of urine output. He initially had a supratherapeutic INR and a slightly elevated white blood cell count as well as an elevated BNP. The white blood cell count declined to normal range. The patient's INR normalized. The patient had an increased dosing on his torsemide to 10 mg daily to which he responded well. His lungs sounded clear on the day of discharge and he was down to using 2 L of oxygen intermittently. As it is his baseline, the patient was amenable for discharge on 01/25/19. PHYSICAL EXAMINATION ON THE DAY OF DISCHARGE: General: The patient is a 78- year- old male, appears the stated age, sitting in comfortable in bed, in no acute distress. Vital Signs: Temperature 97.3, pulse rate 60, respiratory rate 20, oxygen saturation 95% on 2 L, blood pressure 164/86. HEENT: Head normocephalic and atraumatic. Sclerae anicteric. No conjunctival injection. Nasal mucosa moist. Oral mucosa moist. No oropharyngeal erythema, discharge, or exudate. Neck: Supple and nontender. No lymphadenopathy. No carotids bruits auscultated. No JVD. Cardiac: Regular rate and rhythm. No clicks, murmurs, gallops, or rubs. Pulses 2+ in the dorsalis pedis, posterior tibialis, and radial areas. Trace bilateral lower extremity edema noted. Respiratory: Clear to auscultation bilaterally. No wheezes, rales, or rhonchi. Good air exchange bilaterally. Abdomen: Soft, nontender, and nondistended. Bowel sounds present. Normoactive in all 4 quadrants. No hepatosplenomegaly. No abdominal bruits auscultated. No hepatojugular reflux. Genitourinary: No suprapubic or CVA tenderness. Skin: Clean, dry, and intact. No rashes. Neuro : Cranial nerves II through XII intact. No focal deficits. Alert and oriented x3. Psychiatric: Pleasant and cooperative. DISCHARGE PLAN BY PROBLEM: 1. Acute on chronic heart failure with preserved ejection fraction. The patient is improving greatly with diuresis. The patient will be continued to have increase in the dose of diuretic for 1 additional week. The patient has been instructed to stay away from high-salt meals. Examples of this were provided and he was told to read labels on foods and try to take below 2 g of sodium in a day. The patient will be continued on torsemide and home blood pressure medications. The patient will follow up with his primary care provider within 1 week. The patient should weigh himself at least weekly and bring these results to his primary care provider. The patient should continue to wear as oxygen as needed. 2. Atrial fibrillation. The patient is currently rhythm controlled. The patient is on digoxin only for this. It is unclear why this is the only rate- control medication, but this will be continued. His digoxin level was within normal limits for the indication on laboratory data while in the hospital. 3. Hypertension. The patient was slightly hypertensive while in the hospital. However, the patient was continued on his home dose of lisinopril and torsemide. 4. Diabetes mellitus type 2. Continue the patient's metformin. Continue routine outpatient followup. 5. COPD. The patient was not in exacerbation and not on any outpatient medications. 6. Disposition: Home. 7. Diet. Heart-healthy, caffeine okay, low sodium as above. 8. Condition: Stable. TIME SPENT: Approximately 60 minutes was spent on the discharge of this patient , 30 of which was spent [id number] with the patient obtaining history and physical and discussing the treatment plan. GIRISH NATARAJAN [id number]/CPS #: [id number]
[2019-01-26] MEDS ORDERED: Digoxin TAB* 0.125 MG PO SCH (09:00)
== END 2019-01-25 13:08 | disposition home or self-care (01) | DRG 292 ==
LOC: ED 17:28 → MEDTELE 01-24 01:54
PROVIDERS: ADMIT Student in an Organized Health Care Education/Training Program; ATTEND Hospitalist
PROC: 5A09357 Assistance with Respiratory Ventilation, Less than 24 Consecutive Hours, Continuous Positive Airway Pressure (ICD-10-PCS; principal; 2019-01-25)
DX: I11.0 Hypertensive heart disease with heart failure (principal); Z68.41 Body mass index [BMI] 40.0-44.9, adult; J96.11 Chronic respiratory failure with hypoxia; I50.33 Acute on chronic diastolic (congestive) heart failure; E11.9 Type 2 diabetes mellitus without complications; I42.6 Alcoholic cardiomyopathy; I12.9 Hypertensive chronic kidney disease with stage 1 through stage 4 chronic kidney disease, or unspecified chronic kidney disease; J44.9 Chronic obstructive pulmonary disease, unspecified; G47.33 Obstructive sleep apnea (adult) (pediatric); I48.91 Unspecified atrial fibrillation; I25.10 Atherosclerotic heart disease of native coronary artery without angina pectoris; E78.5 Hyperlipidemia, unspecified; E66.01 Morbid (severe) obesity due to excess calories; R79.1 Abnormal coagulation profile; I08.0 Rheumatic disorders of both mitral and aortic valves; I45.10 Unspecified right bundle-branch block; I27.81 Cor pulmonale (chronic); Z99.89 Dependence on other enabling machines and devices; Z72.89 Other problems related to lifestyle; Z87.891 Personal history of nicotine dependence; Z99.81 Dependence on supplemental oxygen; Z28.21 Immunization not carried out because of patient refusal; Z79.899 Other long term (current) drug therapy; Z79.82 Long term (current) use of aspirin; Z79.84 Long term (current) use of oral hypoglycemic drugs; Z79.51 Long term (current) use of inhaled steroids
CPT/HCPCS: 36415; 71046; 80048; 80053; 80162; 83605; 83735; 83880; 84484; 85025; 85610; 87040; 90686; 93005; 93306; 94660; 99284; A9270-GY; J1940

== ENCOUNTER 2021-12-24 17:55 | Inpatient (IN) ==
[2021-12-24] MEDS ORDERED: oxyCODONE/Acetamin 5/325 mg TAB PO ONE (19:12)
[2021-12-24] MEDS ORDERED: Morphine 2 MG/ML SYRINGE IV ONE (19:30)
[2021-12-24] MEDS ORDERED: Lidocaine 1% VIAL 10 MG/ML VIAL INJ ONE (19:53)
[2021-12-24] MEDS ORDERED: fentaNYL 100 mcg/2 ml 50 MCG/ML VIAL IV SLOW PU ONE ×2 (20:22→21:17)
[2021-12-25] MEDS ORDERED: oxyCODONE/Acetamin 5/325 mg TAB PO ONE (00:53)
[2021-12-25 02:38] LABS: ABS Basophils 0.1 10^3/ul (0-0.2); ABS Eosinophils 0.1 10^3/ul (0-0.6); ABS Lymphocytes 1.6 10^3/ul (1.0-4.8); ABS Monocytes 1.2 10^3/ul (0-0.8); ABS Neutrophils 8.1 10^3/ul (1.5-7.7); Eosinophil % 1.1 %; Hematocrit 43 % (42-52); Lymphocyte % 14.5 %; Mean Corpuscular HGB Conc 33 g/dL (31-36); Mean Corpuscular Hemoglobin 30 pg (27-31); Mean Corpuscular Volume 93 fL (80-94); Mean Platelet Volume 8.1 fL (7.4-10.4); Nucleated Red Blood Cells % 0.1; Platelet Count 210 10^3/uL (150-450); Red Blood Count 4.64 10^6 /uL (4.18-5.48); Red Cell Distribution Width 14 % (10-15); White Blood Count 11.1 10^3/uL (3.5-10.8)
[2021-12-25 02:49] LABS: Activated Partial Thrombo Time 36.8 seconds (26.0-38.0); INR 2.11 (0.89-1.11)
[2021-12-25 03:36] LABS: Albumin 3.7 g/dL (3.2-5.2); Albumin/Globulin Ratio 1.3 (1-3); Calcium 8.9 mg/dL (8.6-10.3); Globulin 2.9 g/dL (2-4); Potassium 4.9 mmol/L (3.5-5.0); Total Bilirubin 0.8 mg/dL (0.2-1.0); Total Protein 6.6 g/dL (6.4-8.9)
[2021-12-25] MEDS ORDERED: Lidocaine PATCH 5% PATCH TRANSDERM PRN (06:29)
[2021-12-25] MEDS: Aspirin EC 81 mg TAB.EC (enteric coated) PO SCH (09:14)
[2021-12-25] MEDS ORDERED: Albuterol HFA INHALER 8 gm MDI INH PRN (11:49)
[2021-12-25] MEDS ORDERED: Lidocaine 1% VIAL 10 MG/ML VIAL ONE (12:32)
[2021-12-25] MEDS ORDERED: Phytonadione IV (Adult) 10 MG in NS 0.9% 50 ML 50 ML IV ONE (12:34)
[2021-12-25] MEDS ORDERED: Polyethylene Glycol 3350 17 GM PACKET PO PRN (14:17)
[2021-12-25] MEDS: Morphine 2 MG/ML SYRINGE IV PRN ×2 (14:33→21:11)
[2021-12-25 15:53] LABS: INR 1.84 (0.89-1.11)
[2021-12-25] MEDS: Senna TAB 8.6 mg TAB PO SCH (16:07)
[2021-12-25] MEDS ORDERED: Dextrose 50% Syringe 50 ml 25 GM/50 ML SYRINGE IV PUSH PRN (17:06)
[2021-12-25] MEDS ORDERED: Enoxaparin 40 MG/0.4 ML SYR SUBCUT ONE (17:11)
[2021-12-25] MEDS: Mometasone 220 MCG MDI INH SCH (22:16)
[2021-12-26 00:40] LABS: INR 1.54 (0.89-1.11)
[2021-12-26] MEDS ORDERED: Phytonadione IV (Adult) 5 MG in NS 0.9% 50 ML 50 ML IV ONE (00:53)
[2021-12-26 06:19] LABS: INR 1.39 (0.89-1.11)
[2021-12-26] MEDS: Morphine 2 MG/ML SYRINGE IV PRN (07:47)
[2021-12-26] MEDS: SPIRIVA Respimat (tiotropium) 2.5 mcg/inh Inhaler INH SCH (07:48)
[2021-12-26] MEDS: Aspirin EC 81 mg TAB.EC (enteric coated) PO SCH (08:52)
[2021-12-26] MEDS: Senna TAB 8.6 mg TAB PO SCH (08:55)
[2021-12-26] MEDS ORDERED: Influenza vaccine *QUAD* *2022-23* 0.5 ML SYRINGE IM ONE (09:00)
[2021-12-26] MEDS ORDERED: Buffered Lidocaine 1% SYRIN 1 ml INTRADERM ONE (10:50)
[2021-12-26] MEDS ORDERED: Lactated Ringers 1000 ml BAG 1,000 ML IV SCH (11:00)
[2021-12-26] MEDS ORDERED: ceFAZolin 2 GM in NS PREMIX 2 GM/100 ML BAG IVPB ONE (12:36)
[2021-12-26] MEDS ORDERED: Lidocaine 2% PF 5 ML VIAL ONE (12:55)
[2021-12-26] MEDS ORDERED: Midazolam 2 mg/2 ml VIAL 1 mg/ml 2 ml VIAL (2 mg) ONE (12:55)
[2021-12-26] MEDS ORDERED: fentaNYL 100 mcg/2 ml 50 MCG/ML VIAL ONE (12:55)
[2021-12-26] MEDS ORDERED: Rocuronium 50 mg VIAL 10 mg/ml 5 ml VIAL (50 mg) ONE (13:30)
[2021-12-26] MEDS ORDERED: Dexamethasone IV 4 MG/ML VIAL 1 ml VIAL ONE ×2 (13:31→13:53)
[2021-12-26] MEDS ORDERED: Propofol 10 MG/ML 20 ML BTL ONE (13:31)
[2021-12-26] MEDS ORDERED: Ondansetron 4 mg VIAL 2 MG/ML 2 ml VIAL ONE (13:31)
[2021-12-26] MEDS ORDERED: Phenylephrine 40 mcg/mL 10mL (400mcg) SYRINGE ONE (13:36)
[2021-12-26] MEDS ORDERED: ceFAZolin VIAL VIAL ONE (13:40)
[2021-12-26] MEDS ORDERED: Acetaminophen IV 1 GM/100ML 1,000 MG/100 ML BAG IV ONE (15:39)
[2021-12-26] MEDS ORDERED: fentaNYL 100 mcg/2 ml 50 MCG/ML VIAL IV PRN (17:48)
[2021-12-26] MEDS ORDERED: Naloxone 0.4 mg VIAL 0.4 mg/ml 1 ml VIAL IV PRN (17:48)
[2021-12-26] MEDS ORDERED: Ondansetron 4 mg VIAL 2 MG/ML 2 ml VIAL IV PRN (17:48)
[2021-12-26] MEDS: Mometasone 220 MCG MDI INH SCH (18:46)
[2021-12-26] MEDS: ceFAZolin 1 GM X 3 DOSES POST-OP Q8H (AddVan) IVPB SCH (21:55)
[2021-12-27] MEDS: ceFAZolin 1 GM X 3 DOSES POST-OP Q8H (AddVan) IVPB SCH ×2 (05:44→14:28)
[2021-12-27 05:55] LABS: ABS Lymphocytes 0.8 10^3/ul (1.0-4.8); ABS Monocytes 0.8 10^3/ul (0-0.8); ABS Neutrophils 11.9 10^3/ul (1.5-7.7); Hematocrit 40 % (42-52); Hemoglobin 13.2 g/dL (14.0-18.0); Lymphocyte % 5.6 %; Mean Corpuscular HGB Conc 33 g/dL (31-36); Mean Corpuscular Hemoglobin 30 pg (27-31); Mean Corpuscular Volume 93 fL (80-94); Mean Platelet Volume 8.3 fL (7.4-10.4); Nucleated Red Blood Cells % 0.1; Platelet Count 190 10^3/uL (150-450); Red Blood Count 4.37 10^6 /uL (4.18-5.48); Red Cell Distribution Width 13 % (10-15); White Blood Count 13.4 10^3/uL (3.5-10.8)
[2021-12-27 06:12] LABS: INR 1.24 (0.89-1.11)
[2021-12-27 06:20] LABS: Calcium 8.6 mg/dL (8.6-10.3); Magnesium 1.9 mg/dL (1.9-2.7); Potassium 4.5 mmol/L (3.5-5.0); eGFR CKD-EPI 74.8 (>60)
[2021-12-27] MEDS: SPIRIVA Respimat (tiotropium) 2.5 mcg/inh Inhaler INH SCH ×2 (06:53→07:04)
[2021-12-27] MEDS: Senna TAB 8.6 mg TAB PO SCH (08:41)
[2021-12-27] MEDS: Aspirin EC 81 mg TAB.EC (enteric coated) PO SCH (08:42)
[2021-12-27] MEDS ORDERED: Influenza vaccine *QUAD* *2022-23* 0.5 ML SYRINGE IM ONE ×2 (09:00→21:00)
[2021-12-27] MEDS: Morphine 2 MG/ML SYRINGE IV PRN (16:51)
[2021-12-27] MEDS ORDERED: Warfarin per PHARMACY **NOTE FOLLOW UP SCH (17:00)
[2021-12-27] MEDS: Mometasone 220 MCG MDI INH SCH (19:04)
[2021-12-28 06:16] LABS: ABS Lymphocytes 1.6 10^3/ul (1.0-4.8); ABS Monocytes 1.4 10^3/ul (0-0.8); ABS Neutrophils 11.3 10^3/ul (1.5-7.7); Eosinophil % 0.2 %; Hematocrit 38 % (42-52); Hemoglobin 12.3 g/dL (14.0-18.0); Lymphocyte % 11.3 %; Mean Corpuscular HGB Conc 32 g/dL (31-36); Mean Corpuscular Hemoglobin 30 pg (27-31); Mean Corpuscular Volume 93 fL (80-94); Mean Platelet Volume 8.9 fL (7.4-10.4); Platelet Count 230 10^3/uL (150-450); Red Blood Count 4.09 10^6 /uL (4.18-5.48); Red Cell Distribution Width 13 % (10-15); White Blood Count 14.3 10^3/uL (3.5-10.8)
[2021-12-28 06:22] LABS: INR 1.19 (0.89-1.11)
[2021-12-28 06:41] LABS: Calcium 8.5 mg/dL (8.6-10.3); Potassium 4.5 mmol/L (3.5-5.0); eGFR CKD-EPI 55.4 (>60)
[2021-12-28] MEDS: Aspirin EC 81 mg TAB.EC (enteric coated) PO SCH (08:47)
[2021-12-28] MEDS: Senna TAB 8.6 mg TAB PO SCH (08:47)
[2021-12-28] MEDS: SPIRIVA Respimat (tiotropium) 2.5 mcg/inh Inhaler INH SCH (11:26)
[2021-12-28] MEDS ORDERED: Magnesium Hydroxide LIQ 30 ML UDC PO ONE (12:14)
[2021-12-28] MEDS ORDERED: Magnesium Hydroxide LIQ 30 ML UDC PO PRN (12:14)
[2021-12-28] MEDS: Warfarin DAILY REMINDER **NOTE FOLLOW UP SCH (15:36)
[2021-12-28] MEDS: Mometasone 220 MCG MDI INH SCH (21:00)
[2021-12-29 05:58] LABS: ABS Basophils 0.1 10^3/ul (0-0.2); ABS Eosinophils 0.1 10^3/ul (0-0.6); ABS Lymphocytes 2.5 10^3/ul (1.0-4.8); ABS Monocytes 1.4 10^3/ul (0-0.8); ABS Neutrophils 7.3 10^3/ul (1.5-7.7); Eosinophil % 1.2 %; Hematocrit 37 % (42-52); Hemoglobin 12.1 g/dL (14.0-18.0); Lymphocyte % 21.7 %; Mean Corpuscular HGB Conc 32 g/dL (31-36); Mean Corpuscular Hemoglobin 30 pg (27-31); Mean Corpuscular Volume 93 fL (80-94); Mean Platelet Volume 8.4 fL (7.4-10.4); Platelet Count 219 10^3/uL (150-450); Red Cell Distribution Width 13 % (10-15); White Blood Count 11.4 10^3/uL (3.5-10.8)
[2021-12-29 06:03] LABS: INR 1.2 (0.89-1.11)
[2021-12-29 06:20] LABS: Calcium 8.1 mg/dL (8.6-10.3); Magnesium 1.9 mg/dL (1.9-2.7); Potassium 4.6 mmol/L (3.5-5.0)
[2021-12-29 06:26] LABS: eGFR CKD-EPI 59.1 (>60)
[2021-12-29] MEDS: SPIRIVA Respimat (tiotropium) 2.5 mcg/inh Inhaler INH SCH (07:23)
[2021-12-29] MEDS: Aspirin EC 81 mg TAB.EC (enteric coated) PO SCH (07:25)
[2021-12-29] MEDS: Senna TAB 8.6 mg TAB PO SCH (07:25)
[2021-12-29] MEDS: Morphine 2 MG/ML SYRINGE IV PRN ×2 (12:04→20:25)
[2021-12-29 15:37] LABS: Rapid COVID-19 Molecular Undetected (Undetected)
[2021-12-29] MEDS: Warfarin DAILY REMINDER **NOTE FOLLOW UP SCH (18:22)
[2021-12-29] MEDS: Mometasone 220 MCG MDI INH SCH (21:33)
[2021-12-30 06:12] LABS: ABS Basophils 0.1 10^3/ul (0-0.2); ABS Eosinophils 0.3 10^3/ul (0-0.6); ABS Lymphocytes 1.8 10^3/ul (1.0-4.8); ABS Monocytes 1.4 10^3/ul (0-0.8); ABS Neutrophils 7.2 10^3/ul (1.5-7.7); Eosinophil % 2.4 %; Hematocrit 37 % (42-52); Hemoglobin 11.9 g/dL (14.0-18.0); Lymphocyte % 16.7 %; Mean Corpuscular HGB Conc 32 g/dL (31-36); Mean Corpuscular Hemoglobin 30 pg (27-31); Mean Corpuscular Volume 94 fL (80-94); Mean Platelet Volume 8.4 fL (7.4-10.4); Platelet Count 248 10^3/uL (150-450); Red Blood Count 3.95 10^6 /uL (4.18-5.48); Red Cell Distribution Width 13 % (10-15); White Blood Count 10.7 10^3/uL (3.5-10.8)
[2021-12-30 06:33] LABS: INR 1.32 (0.89-1.11)
[2021-12-30 06:38] LABS: Calcium 8.4 mg/dL (8.6-10.3); eGFR CKD-EPI 59.7 (>60)
[2021-12-30 06:40] LABS: Potassium 5.2 mmol/L (3.5-5.0)
[2021-12-30 08:15] VITALS: BP 122/78
[2021-12-30] MEDS: SPIRIVA Respimat (tiotropium) 2.5 mcg/inh Inhaler INH SCH (08:41)
[2021-12-30] MEDS: Senna TAB 8.6 mg TAB PO SCH (09:15)
[2021-12-30] MEDS: Aspirin EC 81 mg TAB.EC (enteric coated) PO SCH (09:15)
== END 2021-12-30 10:50 | DRG 493 ==
LOC: ED 17:55 → EDHOLD 12-25 06:28 → SUATTDRO 12-25 06:28 → EDHOLD 12-25 15:14 → MED 12-25 15:15 → SSU 12-26 14:42
PROVIDERS: ADMIT Internal Medicine; ATTEND Internal Medicine

== ENCOUNTER 2022-04-02 12:05 | Inpatient (IN) ==
[~2022-04-02 12:05] MED LIST: Buffered Lidocaine 1% SYRIN 1 ml INTRADERM ONE; Famotidine IV 10 MG/ML 2 ml VIAL (20 mg) IV ONE; Lactated Ringers 1000 ml BAG 1,000 ML IV SCH; NS 0.9% 1000 ml BAG 1,000 ML IV SCH
[2022-04-02] MEDS ORDERED: Famotidine IV 10 MG/ML 2 ml VIAL (20 mg) ONE (14:04)
[2022-04-02] MEDS ORDERED: ceFAZolin *3* GM in NS PREMIX 3 GM/100 ML BAG IV ONE (14:04)
[2022-04-02] MEDS ORDERED: fentaNYL 100 mcg/2 ml 50 MCG/ML VIAL ONE (14:08)
[2022-04-02] MEDS ORDERED: Rocuronium 50 mg VIAL 10 mg/ml 5 ml VIAL (50 mg) ONE ×2 (14:09→14:21)
[2022-04-02] MEDS ORDERED: Lidocaine 2% PF 5 ML VIAL ONE ×2 (14:09→14:22)
[2022-04-02] MEDS ORDERED: Midazolam 2 mg/2 ml VIAL 1 mg/ml 2 ml VIAL (2 mg) ONE (14:09)
[2022-04-02] MEDS ORDERED: Propofol 10 MG/ML 20 ML BTL ONE ×2 (14:09→14:21)
[2022-04-02] MEDS ORDERED: Ondansetron 4 mg VIAL 2 MG/ML 2 ml VIAL ONE ×3 (14:09→18:08)
[2022-04-02] MEDS ORDERED: Acetaminophen IV 1 GM/100ML 0 MG/0 ML BAG IV ONE (14:09)
[2022-04-02] MEDS ORDERED: Dexamethasone IV 4 MG/ML VIAL 1 ml VIAL ONE ×2 (14:09→16:10)
[2022-04-02] MEDS ORDERED: Etomidate 20 mg/10 ml 2 MG/ML 10 ml VIAL ONE (14:11)
[2022-04-02] MEDS ORDERED: Phenylephrine IV 10 MG/ML 1 ml VIAL ONE (14:12)
[2022-04-02] MEDS ORDERED: HYDROmorphone 0.5 MG/0.5 ML SYRINGE ONE (14:18)
[2022-04-02] MEDS ORDERED: fentaNYL 250 mcg/5 ml 50 MCG/ML 5 ml VIAL (250 MCG) ONE (14:21)
[2022-04-02 14:23] LABS: ABS Basophils 0.1 10^3/ul (0-0.2); ABS Eosinophils 0.1 10^3/ul (0-0.6); ABS Lymphocytes 1.9 10^3/ul (1.0-4.8); ABS Neutrophils 8.8 10^3/ul (1.5-7.7); Eosinophil % 1.1 %; Hematocrit 39 % (42-52); Hemoglobin 12.7 g/dL (14.0-18.0); Lymphocyte % 15.8 %; Mean Corpuscular HGB Conc 33 g/dL (31-36); Mean Corpuscular Hemoglobin 30 pg (27-31); Mean Corpuscular Volume 92 fL (80-94); Mean Platelet Volume 7.8 fL (7.4-10.4); Platelet Count 290 10^3/uL (150-450); Red Blood Count 4.22 10^6 /uL (4.18-5.48); Red Cell Distribution Width 13 % (10-15); White Blood Count 11.9 10^3/uL (3.5-10.8)
[2022-04-02 14:32] LABS: INR 1.25 (0.88-1.18)
[2022-04-02] MEDS ORDERED: Bupivacaine 0.5% W/EPI SDV 10 ML VIAL INJ ONE (14:51)
[2022-04-02 15:01] LABS: C Reactive Protein 10.64 mg/L (<8.01); Calcium 8.8 mg/dL (8.6-10.3); Creatinine, Serum 1.04 mg/dL (0.67-1.17); Potassium 4.3 mmol/L (3.5-5.0)
[2022-04-02 15:45] LABS: Erythrocyte Sed Rate 29 mm/Hr (0-19)
[2022-04-02] MEDS ORDERED: Sugammadex 500 MG/5 ML 5 ml VIAL IV PUSH ONE (16:20)
[2022-04-02] MEDS ORDERED: fentaNYL 100 mcg/2 ml 50 MCG/ML VIAL IV PRN (16:25)
[2022-04-02] MEDS ORDERED: Naloxone 0.4 mg VIAL 0.4 mg/ml 1 ml VIAL IV PRN (16:25)
[2022-04-02] MEDS ORDERED: Ondansetron 4 mg VIAL 2 MG/ML 2 ml VIAL IV PRN ×2 (16:25→17:09)
[2022-04-02] MEDS ORDERED: Magnesium Hydroxide LIQ 30 ML UDC PO PRN (17:09)
[2022-04-02] MEDS ORDERED: Lactulose 30 ml UDC PO PRN (17:09)
[2022-04-02] MEDS ORDERED: Ondansetron ODT 4 mg TAB 4 MG TAB PO PRN (17:09)
[2022-04-02] MEDS ORDERED: Vancomycin per Pharmacy 1 EA NOTE FOLLOW UP SCH (18:00)
[2022-04-02] MEDS ORDERED: Lactated Ringers 1000 ml BAG 1,000 ML IV SCH (18:00)
[2022-04-02] MEDS ORDERED: Dextrose 50% Syringe 50 ml 25 GM/50 ML SYRINGE IV PUSH PRN (19:16)
[2022-04-02 19:27] LABS: ABS Basophils 0.1 10^3/ul (0-0.2); ABS Eosinophils 0.1 10^3/ul (0-0.6); ABS Monocytes 0.4 10^3/ul (0-0.8); Eosinophil % 0.6 %; Hematocrit 40 % (42-52); Hemoglobin 12.9 g/dL (14.0-18.0); Lymphocyte % 7.7 %; Mean Corpuscular HGB Conc 32 g/dL (31-36); Mean Corpuscular Hemoglobin 30 pg (27-31); Mean Corpuscular Volume 93 fL (80-94); Mean Platelet Volume 8.1 fL (7.4-10.4); Platelet Count 299 10^3/uL (150-450); Red Blood Count 4.28 10^6 /uL (4.18-5.48); Red Cell Distribution Width 14 % (10-15); White Blood Count 13.6 10^3/uL (3.5-10.8)
[2022-04-02] MEDS: Magnesium Hydroxide LIQ 30 ML UDC PO SCH (21:39)
[2022-04-02 21:48] LABS: Erythrocyte Sed Rate 23 mm/Hr (0-19)
[2022-04-02] MEDS ORDERED: Vancomycin 2,000 MG in NS 0.9% 500 ml BAG 500 ML IVPB ONE (22:00)
[2022-04-02] MEDS: Cefepime 2 GM in Dextrose 2 GM/50 ML BAG IV SCH (22:27)
[2022-04-02] MEDS ORDERED: HYDROmorphone 1 MG/1 ML SYRINGE IV PRN (22:34)
[2022-04-02] MEDS ORDERED: Morphine 2 MG/ML SYRINGE IV PRN (22:35)
[2022-04-03] MEDS: Cefepime 2 GM in Dextrose 2 GM/50 ML BAG IV SCH ×3 (05:41→22:27)
[2022-04-03] MEDS: SPIRIVA Respimat (tiotropium) 2.5 mcg/inh Inhaler INH SCH (08:00)
[2022-04-03] MEDS: Magnesium Hydroxide LIQ 30 ML UDC PO SCH ×2 (08:47→21:36)
[2022-04-03] MEDS ORDERED: Carvedilol 12.5 MG TAB (NF) PO SCH (09:00)
[2022-04-03] MEDS ORDERED: Influenza vaccine *QUAD* *2022-23* 0.5 ML SYRINGE IM ONE (09:00)
[2022-04-03 09:46] LABS: ABS Basophils 0.1 10^3/ul (0-0.2); ABS Monocytes 0.7 10^3/ul (0-0.8); Eosinophil % 0.1 %; Hematocrit 40 % (42-52); Lymphocyte % 6.9 %; Mean Corpuscular HGB Conc 32 g/dL (31-36); Mean Corpuscular Hemoglobin 30 pg (27-31); Mean Corpuscular Volume 93 fL (80-94); Mean Platelet Volume 8.2 fL (7.4-10.4); Platelet Count 294 10^3/uL (150-450); Red Blood Count 4.31 10^6 /uL (4.18-5.48); Red Cell Distribution Width 13 % (10-15); White Blood Count 14.8 10^3/uL (3.5-10.8)
[2022-04-03 10:20] LABS: Calcium 8.6 mg/dL (8.6-10.3); Creatinine, Serum 1.01 mg/dL (0.67-1.17); Potassium 4.3 mmol/L (3.5-5.0); eGFR CKD-EPI 75.7 (>60)
[2022-04-03] MEDS ORDERED: Senna TAB 8.6 mg TAB PO PRN (10:40)
[2022-04-03] MEDS ORDERED: Polyethylene Glycol 3350 17 GM PACKET PO PRN (10:40)
[2022-04-03] MEDS: Vancomycin 1000 MG in NS 0.9% 250 ML IVPB SCH ×2 (11:06→23:26)
[2022-04-03] MEDS: Mometasone 220 MCG MDI INH SCH (20:03)
[2022-04-04 06:03] LABS: ABS Basophils 0.1 10^3/ul (0-0.2); ABS Eosinophils 0.1 10^3/ul (0-0.6); ABS Lymphocytes 2.1 10^3/ul (1.0-4.8); ABS Monocytes 1.1 10^3/ul (0-0.8); ABS Neutrophils 9.2 10^3/ul (1.5-7.7); Eosinophil % 0.9 %; Hematocrit 41 % (42-52); Hemoglobin 13.3 g/dL (14.0-18.0); Lymphocyte % 16.5 %; Mean Corpuscular HGB Conc 32 g/dL (31-36); Mean Corpuscular Hemoglobin 30 pg (27-31); Mean Corpuscular Volume 94 fL (80-94); Mean Platelet Volume 8.3 fL (7.4-10.4); Platelet Count 252 10^3/uL (150-450); Red Cell Distribution Width 14 % (10-15); White Blood Count 12.5 10^3/uL (3.5-10.8)
[2022-04-04 06:24] LABS: Calcium 8.5 mg/dL (8.6-10.3); Potassium 4.6 mmol/L (3.5-5.0); eGFR CKD-EPI 76.6 (>60)
[2022-04-04] MEDS: Cefepime 2 GM in Dextrose 2 GM/50 ML BAG IV SCH ×3 (07:53→21:14)
[2022-04-04] MEDS: SPIRIVA Respimat (tiotropium) 2.5 mcg/inh Inhaler INH SCH (08:26)
[2022-04-04] MEDS: Magnesium Hydroxide LIQ 30 ML UDC PO SCH ×2 (09:53→20:38)
[2022-04-04] MEDS ORDERED: Vancomycin Trough Check NOTE FOLLOW UP ONE (10:30)
[2022-04-04] MEDS: Vancomycin 1000 MG in NS 0.9% 250 ML IVPB SCH ×2 (12:42→22:58)
[2022-04-04] MEDS: Mometasone 220 MCG MDI INH SCH (19:26)
[2022-04-05] MEDS: Cefepime 2 GM in Dextrose 2 GM/50 ML BAG IV SCH ×3 (05:31→21:49)
[2022-04-05] MEDS: SPIRIVA Respimat (tiotropium) 2.5 mcg/inh Inhaler INH SCH (07:04)
[2022-04-05 08:56] LABS: ABS Basophils 0.1 10^3/ul (0-0.2); ABS Eosinophils 0.2 10^3/ul (0-0.6); ABS Lymphocytes 1.6 10^3/ul (1.0-4.8); ABS Monocytes 0.9 10^3/ul (0-0.8); ABS Neutrophils 7.3 10^3/ul (1.5-7.7); Eosinophil % 2.3 %; Hematocrit 38 % (42-52); Hemoglobin 12.5 g/dL (14.0-18.0); Lymphocyte % 15.8 %; Mean Corpuscular HGB Conc 33 g/dL (31-36); Mean Corpuscular Hemoglobin 30 pg (27-31); Mean Corpuscular Volume 92 fL (80-94); Mean Platelet Volume 8.1 fL (7.4-10.4); Platelet Count 273 10^3/uL (150-450); Red Cell Distribution Width 13 % (10-15); White Blood Count 10.1 10^3/uL (3.5-10.8)
[2022-04-05 09:25] LABS: C Reactive Protein 11.58 mg/L (<8.01); Calcium 8.4 mg/dL (8.6-10.3); Creatinine, Serum 0.94 mg/dL (0.67-1.17); Potassium 4.3 mmol/L (3.5-5.0); eGFR CKD-EPI 82.5 (>60)
[2022-04-05] MEDS: Magnesium Hydroxide LIQ 30 ML UDC PO SCH ×2 (09:57→20:34)
[2022-04-05 11:12] LABS: Erythrocyte Sed Rate 30 mm/Hr (0-19)
[2022-04-05] MEDS: Vancomycin 1000 MG in NS 0.9% 250 ML IVPB SCH (12:40)
[2022-04-05] MEDS: Mometasone 220 MCG MDI INH SCH (19:32)
[2022-04-06] MEDS: SPIRIVA Respimat (tiotropium) 2.5 mcg/inh Inhaler INH SCH (07:30)
[2022-04-06] MEDS: Cefepime 2 GM in Dextrose 2 GM/50 ML BAG IV SCH ×2 (08:54→22:05)
[2022-04-06] MEDS: Magnesium Hydroxide LIQ 30 ML UDC PO SCH ×2 (08:58→21:46)
[2022-04-06] MEDS ORDERED: Lidocaine 1% MPF 5 ML VIAL INJ ONE (10:50)
[2022-04-06] MEDS: Mometasone 220 MCG MDI INH SCH (18:48)
[2022-04-07] MEDS: SPIRIVA Respimat (tiotropium) 2.5 mcg/inh Inhaler INH SCH (07:17)
[2022-04-07] MEDS: Magnesium Hydroxide LIQ 30 ML UDC PO SCH ×2 (09:34→21:17)
[2022-04-07] MEDS: Cefepime 2 GM in Dextrose 2 GM/50 ML BAG IV SCH ×2 (09:35→21:37)
[2022-04-07] MEDS: Mometasone 220 MCG MDI INH SCH (19:10)
[2022-04-08] MEDS: SPIRIVA Respimat (tiotropium) 2.5 mcg/inh Inhaler INH SCH (07:41)
[2022-04-08] MEDS: Cefepime 2 GM in Dextrose 2 GM/50 ML BAG IV SCH ×2 (08:35→20:55)
[2022-04-08] MEDS: Magnesium Hydroxide LIQ 30 ML UDC PO SCH (08:35)
[2022-04-08] MEDS: Mometasone 220 MCG MDI INH SCH (19:01)
[2022-04-09] MEDS: SPIRIVA Respimat (tiotropium) 2.5 mcg/inh Inhaler INH SCH (07:10)
[2022-04-09 07:12] VITALS: BP 133/79
[2022-04-09] MEDS: Cefepime 2 GM in Dextrose 2 GM/50 ML BAG IV SCH (07:53)
== END 2022-04-09 09:00 | DRG 496 ==
LOC: SSU 12:05 → OR 12:05
PROVIDERS: ADMIT Orthopaedic Surgery; ATTEND Orthopaedic Surgery